=== PATIENT | male | born 1960 | race Caucasian/White ===

== ENCOUNTER 2019-03-13 18:32 | Outpatient (CLI) | payer BC | END 2019-03-13 18:33 | disposition EMS.NT | LOC: EMS 18:32 | PROVIDERS: ATTEND Surgery | DX: R41.82 Altered mental status, unspecified (principal) ==

== ENCOUNTER 2019-03-13 19:54 | Emergency (ER) | payer BC ==
--- NOTE | 2019-03-13 20:56 | ED Physician Documentation ---
History of Present Illness - Stated complaint Stated Complaint: MEMORY LOSS - Chief complaint Chief Complaint: General - History obtained from History obtained from: Patient - History of Present Illness Timing: Enter time (18:00), Today Pain level max: 0 Pain level now: 0 Improved by: no ameliorating factors Worsened by: no apparent inciting nor exacerbating factors - Additonal information Additional information: while exercising at gym this afternoon at approximately 6 PM, patient became confused. He says he was working with a corporate trainer at the gym and the corporate trainer noticed patient was performing an exercise that the patient had said he was not going to do today because of some knee discomfort. When the corporate trainer commented to patient that he thought that patient had said he was not going to perform this exercise, patient expressed he had no recollection having discussed this. As they talked more, the corporate trainer became increasingly concerned that patient was forgetting other things they had just discussed minutes earlier. Patient is still amnestic for some of the conversation but says he now feels fine. He says he had two previous similar episodes but did not seek medical attention because the events were self-limited and not distressing to patient. Review of Systems Constitutional: reports: Reviewed and negative Eyes: reports: Reviewed and negative Cardiac: reports: Reviewed and negative Respiratory: reports: Reviewed and negative GI: reports: Reviewed and negative Musculoskeletal: reports: Reviewed and negative Neurologic: reports: Altered mental status. denies: Generalized weakness, Focal weakness, Numbness, Difficulty speaking, Headache, Head injury, LOC PD PAST MEDICAL HISTORY - Past Medical History Past Medical History: No - Allergies Allergies/Adverse Reactions: Allergies Allergy/AdvReac Type Severity Reaction Status Date / Time No Known Drug Allergies Allergy Verified 03/13/19 20:12 - Living Situation Living Arrangement: reports: At home PD ED PE NORMAL - Vitals Vital signs reviewed: Yes - General General: Alert and oriented X 3, No acute distress, Well developed/nourished - HEENT HEENT: PERRL, EOMI, Moist mucous membranes - Neck Neck: Supple, no meningeal sign - Cardiac Cardiac: RRR, No murmur, No gallop, No rub - Respiratory Respiratory: No respiratory distress, Clear bilaterally - Abdomen Abdomen: Soft, Non tender - Derm Derm: Normal color, Warm and dry - Extremities Extremities: No edema - Neuro Neuro: Alert and oriented X 3, lead php developer 2-12 intact, No motor deficit, No sensory deficit, Normal speech Eye Opening: Spontaneous Motor: Obeys Commands Verbal: Oriented GCS Score: 15 - Psych Psych: Normal mood, Normal affect Results - Vitals Vitals: Vital Signs - 24 hr 03/13/19 03/13/19 03/13/19 20:08 21:49 22:59 Temperature 37.1 C Heart Rate 73 69 68 Respiratory 16 13 15 Rate Blood Pressure 170/106 H 155/103 H 137/97 H O2 Saturation 100 98 97 Oxygen O2 Source Room air - EKG (time done) No standard instances Rate: Rate (enter#) (71) Rhythm: NSR [place]: Normal Intervals: Normal CT QRS: LVH Ischemia: Normal ST segments - Labs Labs: Laboratory Tests 03/13/19 03/13/19 21:24 21:24 WBC 6.7 RBC 4.86 Hgb 15.2 Hct 44.5 MCV 91.6 MCH 31.3 H MCHC 34.2 RDW 12.5 Plt Count 208 MPV 9.3 Neut # (Auto) 4.6 Lymph # (Auto) 1.4 L [place] # (Auto) 0.6 Eos # (Auto) 0.1 Baso # (Auto) 0.0 Absolute Nucleated RBC 0.00 Nucleated RBC % 0.0 Sodium 139 Potassium 4.0 Chloride 104 Carbon Dioxide 24 Anion Gap 11.0 BUN 17 Creatinine 0.9 Estimated GFR (MDRD) 86 L Glucose 99 Calcium 9.4 - Rads (name of study) CT head Radiology: Prelim report reviewed, See rad report chest xray Radiology: Prelim report reviewed, See rad report PD MEDICAL DECISION MAKING - ED course Complexity details: reviewed results, re-evaluated patient, considered differential, d/w patient ED course: NAD and asymptomatic in ED. HPI most suggests TGA; other diagnoses considered including TIA, hypotension/dysrhythmia Departure - Departure Disposition: 01 Home, Self Care Clinical Impression: TGA (transient global amnesia) Condition: Good Instructions: ED Confusion Comments: Please follow up with your primary care provider. They might recommend further testing even if you are feeling well Discharge Date/Time: 03/13/19 23:07
[2019-03-13 21:33] LABS: BASOPHILS % (AUTO) 0.3 %; EOSINOPHILS # (AUTO) 0.1 10^3/uL (0.0-0.7); EOSINOPHILS % (AUTO) 0.9 %; HGB - HEMOGLOBIN 15.2 g/dL (14.0-18.0); LYMPHOCYTES # (AUTO) 1.4 10^3/uL (1.5-3.5); LYMPHOCYTES % (AUTO) 21.1 %; MEAN CORPUSCULAR HEMOGLOBIN 31.3 pg (27.0-31.0); MEAN CORPUSCULAR HGB CONC 34.2 g/dL (32.0-36.0); MEAN CORPUSCULAR VOLUME 91.6 fL (80.0-94.0); MEAN PLATELET VOLUME 9.3 fL (7.4-11.4); MONOCYTES # (AUTO) 0.6 10^3/uL (0.0-1.0); MONOCYTES % (AUTO) 8.9 %; NEUTROPHILS # (AUTO) 4.6 10^3/uL (1.5-6.6); NEUTROPHILS % (AUTO) 68.5 %; PLT - PLATELET COUNT 208 10^3/uL (130-450); RED BLOOD COUNT 4.86 10^6/uL (4.70-6.10); RED CELL DISTRIBUTION WIDTH 12.5 % (12.0-15.0); WHITE BLOOD COUNT 6.7 x10^3/uL (4.8-10.8)
[2019-03-13 21:43] LABS: CALCIUM 9.4 mg/dL (8.5-10.3); CREATININE 0.9 mg/dL (0.6-1.2)
--- NOTE | 2019-03-13 21:54 | XRAY Report ---
Reason: AMS Procedure Date: 03/13/2019 Accession Number: [id number] / [id number] Procedure: XR - Chest 2 View X-Ray CPT Code: 99647 FULL RESULT: EXAM: CHEST RADIOGRAPHY EXAM DATE: 03/13/2019 09:41 PM. CLINICAL HISTORY: Altered mental status. COMPARISON: None. TECHNIQUE: 2 views. FINDINGS: Lungs/Pleura: No focal opacities evident. No pleural effusion. No pneumothorax. Normal volumes. Mediastinum: Heart and mediastinal contours are unremarkable. Other: None. IMPRESSION: Normal 2-view chest radiography. [facility]
--- NOTE | 2019-03-13 21:58 | CT Report ---
Reason: AMS Procedure Date: 03/13/2019 Accession Number: [id number] / [id number] Procedure: CT - HEAD WO CPT Code: FULL RESULT: EXAM: CT HEAD EXAM DATE: 03/13/2019 09:36 PM. CLINICAL HISTORY: AMS. COMPARISON: None. TECHNIQUE: Multiaxial CT images were obtained from the foramen magnum to the vertex. Reformats: Sagittal and coronal. IV contrast: None. In accordance with CT protocol optimization, one or more of the following dose reduction techniques were utilized for this exam: automated exposure control, adjustment of mA and/or KV based on patient size, or use of iterative reconstructive technique. FINDINGS: Parenchyma: No intraparenchymal hemorrhage. No evidence of mass, midline shift, or CT findings of infarction. Lima-white differentiation is distinct. Extraaxial Spaces: Normal for age. No subdural or epidural collections identified. Ventricles: Normal in size and position. Sinuses and Orbits: Imaged paranasal sinuses, orbits, and mastoids show no significant abnormality. Bones: No evidence of fracture or calvarial defect. Other: None. IMPRESSION: No significant intracranial abnormality. [facility]
[2019-03-13 22:59] VITALS: BP 137/97
== END 2019-03-13 23:07 | disposition home or self-care (01) ==
LOC: ED 19:54
DX: G45.4 Transient global amnesia (principal)
CPT/HCPCS: 36415; 70450; 71046; 80048; 85025; 93005; 99284